=== PATIENT | female | born 1980 | race Two or more races ===

== ENCOUNTER 2021-03-22 10:32 | Emergency (ER) | payer SELFPAY ==
[~2021-03-22] VITALS: Ht 154.9 cm; Wt 75.9 kg
[2021-03-22] MEDS ORDERED: FAMOTIDINE 20 MG/2 ML VIAL IVP ONE (11:00)
[2021-03-22] MEDS ORDERED: ONDANSETRON PF 4 MG/2 ML VIAL. IVP ONE (11:00)
[2021-03-22] MEDS ORDERED: IV NORMAL SALINE 1000ML BAG 1,000 ML IV SCH (11:00)
[2021-03-22] MEDS ORDERED: fentaNYL PF VIAL 100 MCG/2 ML VIAL IVP ONE (11:00)
[2021-03-22 11:30] LABS: BASO % 1 % (0-3); EOS % 0 % (0-3); HEMATOCRIT 38.3 % (36.0-47.0); HEMOGLOBIN 13.1 g/dL (12.0-15.5); LYMPH # 2.1 x10^3/uL (1.0-4.8); LYMPH % 27 % (24-48); MEAN CORPUSCULAR HEMOGLOBIN 30 pg (25-35); MEAN CORPUSCULAR HGB CONC 34 g/dL (31-37); MEAN CORPUSCULAR VOLUME 89 fL (79-100); MONO # 0.5 x10^3/uL (0.0-1.1); MONO % 6 % (0-9); NEUT % 66 % (31-73); PLATELET COUNT 300 x10^3/uL (140-400); RED BLOOD COUNT 4.33 x10^6/uL (3.50-5.40); RED CELL DISTRIBUTION WIDTH 13.8 % (11.5-14.5); WHITE BLOOD COUNT 7.6 x10^3/uL (4.0-11.0)
[2021-03-22] MEDS ORDERED: IOHEXOL 300 MG/ML 100ML VIAL. IV ONE (11:30)
--- NOTE | 2021-03-22 11:35 | PHYS DOC ---
Past Medical History Past Surgical History: No Surgical History Smoking Status: Never Smoker Alcohol Use: None General Adult EDM: Chief Complaint: ABDOMINAL PAIN HPI: HPI: Patient is a 40 year old female who presents with 2 days ago went to [facility] and was told she has not have a bacterial infection in her intestines and has had symptoms of diarrhea, nausea and left lower abdominal pain. She is unable to tell me what it feels like. She was placed on clarithromycin and amoxicillin and was taking a probiotic. Patient is very anxious. Denies chest pain, shortness of breath, fever, headache, syncope, vomiting, focal weakness, numbness or tingling, urinary symptoms, vision change. Review of Systems: Review of Systems: Constitutional: Denies fever or chills. [] Eyes: Denies change in visual acuity. [] HENT: Denies nasal congestion or sore throat. [] Respiratory: Denies cough or shortness of breath. [] Cardiovascular: Denies chest pain or edema. [] GI: + abdominal pain, +nausea, denies vomiting, bloody stools or +diarrhea. [] : Denies dysuria. [] Musculoskeletal: Denies back pain or joint pain. [] Integument: Denies rash. [] Neurologic: Denies headache, focal weakness or sensory changes. [] Endocrine: Denies polyuria or polydipsia. [] Lymphatic: Denies swollen glands. [] Psychiatric: Denies depression or anxiety. [] Heart Score: C/O Chest Pain: No HEART Score for Chest Pain: HEART Score for Chest Pain Response (Comments) Value History Slighlty/Non-Suspicious 0 ECG Nonspecific Repolarizatio 1 Age < 45 0 Risk Factors 1 or 2 Risk Factors 1 Troponin < Normal Limit 0 Total 2 Risk Factors: Risk Factors: DM, Current or recent (<one month) smoker, HTN, HLP, family histo ry of CAD, obesity. Risk Scores: Score 0 - 3: 2.5% MACE over next 6 weeks - Discharge Home Score 4 - 6: 20.3% MACE over next 6 weeks - Admit for Clinical Observation Score 7 - 10: 72.7% MACE over next 6 weeks - Early Invasive Strategies Current Medications: Current Medications Medications (Trade) Dose Ordered Sig/Lex Start Time Stop Time Status Last Admin Dose Admin Famotidine (Pepcid Vial) 20 mg 1X ONCE 03/22/21 11:00 03/22/21 11:04 DC 03/22/21 11:25 20 MG Fentanyl Citrate (Fentanyl 2ml Vial) 50 mcg 1X ONCE 03/22/21 11:00 03/22/21 11:04 DC 03/22/21 11:28 50 MCG Iohexol (Omnipaque 300 Mg/ml) 75 ml 1X ONCE 03/22/21 11:30 03/22/21 11:31 UNV Ondansetron HCl (Zofran) 4 mg 1X ONCE 03/22/21 11:00 03/22/21 11:04 DC 03/22/21 11:24 4 MG Sodium Chloride 1,000 ml @ 1,000 mls/hr Q1H 03/22/21 11:00 03/22/21 11:59 03/22/21 11:15 1,000 MLS/HR Allergies: Allergies: Allergies Coded Allergies Type Severity Reaction Last Updated Verified No Known Drug Allergies 03/22/21 No Physical Exam: PE: Constitutional: Well developed, well nourished, no acute distress, non-toxic appearance. [] HENT: Normocephalic, atraumatic, bilateral external ears normal, oropharynx moist, no oral exudates, nose normal. [] Eyes: PERRLA, EOMI, conjunctiva normal, no discharge. [] Neck: Normal range of motion, no tenderness, supple, no stridor. [] Cardiovascular:Heart rate regular rhythm, no murmur [] Lungs & Thorax: Bilateral breath sounds clear to auscultation [] Abdomen: Bowel sounds normal, soft, left mid to lower tenderness, no masses, no pulsatile masses. [] Skin: Warm, dry, no erythema, no rash. [] Back: No tenderness, no CVA tenderness. [] Extremities: No tenderness, no cyanosis, no clubbing, ROM intact, no edema. [] Neurologic: Alert and oriented X 3, normal motor function, normal sensory function, no focal deficits noted. [] Psychologic: Affect normal, judgement normal, mood normal. [] Current Patient Data: Vital Signs: Vital Signs Date Time Temp Pulse Resp B/P (MAP) Pulse Ox O2 Delivery O2 Flow Rate FiO2 03/22/21 11:28 26 99 Room Air 03/22/21 11:00 98.2 96 136/76 (96) 98.2 EKG: EK and read by Dr. Gupta is a sinus rhythm and no STEMI Radiology/Procedures: Radiology/Procedures: [] Impression: [facility] [address] [place] [address] IMAGING REPORT Signed PATIENT: NAVEED SANDOVAL ACCOUNT: [id number] : 1980 LOCATION: ER AGE: 40 SEX: F EXAM STATUS: REG ER ORD. PHYSICIAN: NUSRAT CHAO APRN REASON: SEVERE ABDOMINAL PAIN, NAUSEA, DIARRHEA PROCEDURE: CT ABD PELV W/ IV CONTRST ONLY EXAMINATION: CT abdomen and pelvis with IV contrast. INDICATION:40 years, Female, severe abdominal pain, nausea and diarrhea. TECHNIQUE: Axial CT images of the abdomen and pelvis were obtained. Coronal and sagittal reformatted performed. COMPARISON: None. Exposure: One or more of the following individualized dose reduction techniques were utilized for this examination: 1. Automated exposure control 2. Adjustment of the mA and/or kV according to patient size 3. Use of iterative reconstruction technique. FINDINGS: LOWER CHEST: Unremarkable. ABDOMEN/PELVIS: Liver, gallbladder, biliary ducts, spleen, pancreas, adrenal glands and kidneys are unremarkable. No bowel obstruction or wall thickening. Fluid filled distended appendix measures up to 1.6 cm in maximum diameter at the base. No significant wall thickening or periappendiceal fat stranding to suggest acute inflammation. Normal caliber abdominal aorta. Mesenteric arteries and portal veins are patent. No pneumoperitoneum or ascites. No lymphadenopathy in the abdomen or pelvis by size criteria. Unremarkable urinary bladder and uterus. No suspicious pelvic masses. MUSCULOSKELETAL STRUCTURES: No acute osseous process. IMPRESSION: 1. No acute abnormality in the abdomen or pelvis. 2. Fluid-filled distended appendix measures up to 1.6 cm in maximum diameter at the base. No other CT evidence of acute appendicitis. 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 Surgical consultation is recommended. Electronically signed by: Kellie Williamson MD (03/22/2021 12:30 PM) [facility] DICTATED and SIGNED BY: KELLIE WILLIAMSON MD DATE: 03/22/21 [id number] [facility] [address] [place] [address] IMAGING REPORT Signed PATIENT: NAVEED SANDOVAL ACCOUNT: [id number] : 1980 LOCATION: ER AGE: 40 SEX: F EXAM STATUS: REG ER ORD. PHYSICIAN: NUSRAT CHAO APRN REASON: DIZZINESS PROCEDURE: PORTABLE CHEST 1V EXAMINATION: Chest radiograph. VIEWS: 1 COMPARISON: None. INDICATION:40 years, Female, dizziness. FINDINGS: Normal cardiomediastinal silhouette. No focal consolidation. No pleural effusion or pneumothorax. No acute osseous process. IMPRESSION: No acute cardiopulmonary process. Electronically signed by: Kellie Williamson MD (03/22/2021 11:51 AM) [facility] DICTATED and SIGNED BY: KELLIE WILLIAMSON MD DATE: 03/22/21 [id number] 0 Course & Med Decision Making: Course & Med Decision Making Pertinent Labs and Imaging studies reviewed. (See chart for details) See HPI. Patient is hyperventilating, crying and very anxious. Ambulatory with a steady gait. Abdomen soft rotated to the left lower abdomen. Skin pink warm and dry. Vital signs are within normal limits except patient is hyperventilating. Speaks in full clear sentences. Speaks pretty good [place] but daughter is fluent in [place] in the room. No extremity edema. No CVA tenderness. Blood work unremarkable. Patient appendix is inflamed. I called Dr. Nation who states that the patient could probably follow-up with him next week in the office. Patient states she is feeling better. I again checked patient's abdomen is soft and nontender at this time. She is still afebrile. Blood work is unremarkable. Patient states that she feels like she is okay to go home and can follow-up next week with Dr. Nation. I will also refer her to a gastrointestinal doctor. [] Richelle Disclaimer: Richelle Disclaimer: This electronic medical record was generated, in whole or in part, using a voice recognition dictation system. Departure Departure Impression: Primary Impression: Abdominal pain Qualified Codes: R10.30 - Lower abdominal pain, unspecified Disposition: HOME / SELF CARE / HOMELESS Condition: STABLE Referrals: NON,STAFF (PCP) JADA PERRY MD, THOMAS W MD Patient Instructions: Diet for Diarrhea, Adult, Nausea and Vomiting Additional Instructions: Follow-up with Dr. Nation by calling the office this coming week. Drink plenty of fluids to stay hydrated. Medication as prescribed and with food. I also referred you to a GI doctor so I would try to call and get an appointment with them also. If anything worsens such as you cannot keep down fluids or you begin running a fever or having severe abdominal pain return to the emergency room. Scripts Ondansetron (ONDANSETRON ODT) 4 Mg Tab.rapdis 1 TAB PO PRN Q6-8HRS, #30 TAB Prov: NUSRAT CHAO APRN 03/22/21 NUSRAT CHAO APRN Mar 22, 2021 11:35
[2021-03-22 11:38] LABS: CALCIUM 8.6 mg/dL (8.5-10.1); CREATININE 0.7 mg/dL (0.6-1.0); GFR 92.7; POTASSIUM 3.7 mmol/L (3.5-5.1)
[2021-03-22 11:39] LABS: BILIRUBIN,URINE NEGATIVE (NEG); COLOR,URINE YELLOW; NITRITE,URINE NEGATIVE (NEG); PH,URINE 7.5 (<5.0-8.0); PROTEIN,URINE NEGATIVE (NEG-TRACE); UROBILINOGEN,URINE 0.2 mg/dL (0.2 mg/dL)
[2021-03-22 11:45] LABS: ALBUMIN 3.7 g/dL (3.4-5.0); ALBUMIN/GLOBULIN RATIO 0.9 (1.0-1.7); TOTAL BILIRUBIN 0.5 mg/dL (0.2-1.0); TOTAL PROTEIN 7.7 g/dL (6.4-8.2)
[2021-03-22] MEDS ORDERED: CONTRAST GIVEN. MC PRN (11:45)
--- NOTE | 2021-03-22 11:54 | RAD ---
EXAMINATION: Chest radiograph. VIEWS: 1 COMPARISON: None. INDICATION:40 years, Female, dizziness. FINDINGS: Normal cardiomediastinal silhouette. No focal consolidation. No pleural effusion or pneumothorax. No acute osseous process. IMPRESSION: No acute cardiopulmonary process. Electronically signed by: Maru Williamson MD (03/22/2021 11:51 AM) [facility]
[2021-03-22 11:57] VITALS: BP 134/77
[2021-03-22 12:03] LABS: CLARITY,URINE CLEAR
[2021-03-22 12:04] LABS: BACTERIA,URINE 0 /HPF (0-FEW); WBC,URINE RARE /HPF (0-4)
[2021-03-22 12:07] LABS: INFLUENZA A PATIENT NEGATIVE (NEGATIVE); INFLUENZA B PATIENT NEGATIVE (NEGATIVE)
--- NOTE | 2021-03-22 12:32 | RAD ---
EXAMINATION: CT abdomen and pelvis with IV contrast. INDICATION:40 years, Female, severe abdominal pain, nausea and diarrhea. TECHNIQUE: Axial CT images of the abdomen and pelvis were obtained. Coronal and sagittal reformatted performed. COMPARISON: None. Exposure: One or more of the following individualized dose reduction techniques were utilized for thi s examination: 1. Automated exposure control 2. Adjustment of the mA and/or kV according to patient size 3. Use of iterative reconstruction technique. FINDINGS: LOWER CHEST: Unremarkable. ABDOMEN/PELVIS: Liver, gallbladder, biliary ducts, spleen, pancreas, adrenal glands and kidneys are unremarkable. No bowel obstruction or wall thickening. Fluid filled distended appendix measures up to 1.6 cm in maximu m diameter at the base. No significant wall thickening or periappendiceal fat stranding to suggest ac ana inflammation. Normal caliber abdominal aorta. Mesenteric arteries and portal veins are patent. No pneumoperitoneum or ascites. No lymphadenopathy in the abdomen or pelvis by size criteria. Unremarka ble urinary bladder and uterus. No suspicious pelvic masses. MUSCULOSKELETAL STRUCTURES: No acute osseous process. IMPRESSION: 1. No acute abnormality in the abdomen or pelvis. 2. Fluid-filled distended appendix measures up to 1.6 cm in maximum diameter at the base. No other CT evidence of acute appendicitis. 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 Surgical consultation is recommended. Electronically signed by: Maru Williamson MD (03/22/2021 12:30 PM) [facility]
[2021-03-22] MEDS ORDERED: ONDA4TAB12 PO (13:01)
== END 2021-03-22 13:10 | disposition home or self-care (01) ==
LOC: ER 10:32
DX: R10.32 Left lower quadrant pain (principal); Z20.822 Contact with and (suspected) exposure to COVID-19; R19.7 Diarrhea, unspecified; R11.0 Nausea
CPT/HCPCS: 36415; 71045; 74177; 80053; 81001; 81025; 83690; 84484; 85025; 87428; 96361; 96374; 96375; 99285; J2405; J3010; J3490; J7030; Q9967; U0003; U0005

== ENCOUNTER 2021-03-24 11:28 | Emergency (ER) | payer SELFPAY ==
[~2021-03-24 11:28] MED LIST: ONDA4TAB12 PO
== END 2021-03-24 12:00 | disposition left against medical advice (07) ==
LOC: ER 11:28
DX: R10.9 Unspecified abdominal pain (principal); Z53.21 Procedure and treatment not carried out due to patient leaving prior to being seen by health care provider